=== PATIENT | female | born 1985 | race Hispanic/Latino ===

== ENCOUNTER 2022-02-10 20:20 | Emergency (ER) | payer OTHER, SELFPAY ==
[2022-02-10 20:30] VITALS: BP 112/55; PULSE 77; RESP 16; TEMP 36.3; O2SAT 99
[2022-02-10 21:02] LABS: Add Manual Diff / Slide Review NO; Basophils Absolute Auto 100 /uL (0-100); Basophils Percent Auto 0.6 % (0-2); Eosinophils Absolute Auto 100 /uL (0-450); Eosinophils Percent Auto 0.6 % (2-4); Hematocrit 38.7 % (36-46); Hemoglobin 13.1 g/dL (12.0-16.0); Lymphocytes Absolute Auto 3100 /uL (1100-4500); Lymphocytes Percent Auto 27.7 % (25-40); Mean Corpuscular HGB Conc 33.9 % (30-36); Mean Corpuscular Hemoglobin 29.8 PG (26-34); Monocytes Absolute Auto 700 /uL (0-900); Monocytes Percent Auto 6.6 % (3-14); Neutrophils Absolute Auto 7200 /uL (1500-7000); Neutrophils Percent Auto 64.5 % (50-75); Platelet Count 288 X10^3/uL (150-400); White Blood Cell Count 11.1 X10^3/uL (4.5-11.0)
[2022-02-10 21:04] LABS: Alanine Aminotransferase 25 IU/L (<35); Albumin 4.5 g/dL (3.5-5.0); Albumin Globulin Ratio 1.2 (1.0-2.8); Alkaline Phosphatase 63 U/L (38-126); Aspartate Aminotransferase 45 IU/L (14-36); BUN Creatinine Ratio 20.3 (6-22); Bilirubin Total 0.4 mg/dL (0.2-1.3); Blood Urea Nitrogen 15 mg/dL (7-17); Calcium 8.5 mg/dL (8.4-10.2); Carbon Dioxide 23 mmol/L (22-32); Chloride 104 mmol/L (98-107); Estimated Glomerular Filt Rate > 60 mL/min (>60); Globulin 3.8 g/dL (1.7-4.1); Glucose 108 mg/dL (70-100); HEMOLYSIS < 15 (0-50); Lipase 141 U/L (23-300); Potassium 3.7 mmol/L (3.4-5.1); Sodium 138 mmol/L (137-145); Total Protein 8.3 g/dL (6.3-8.2)
[2022-02-10 21:07] LABS: Bacteria Urine Occasional (0-1); Mucus Urine 1+ (Negative); RBC Urine 0-1/HPF (0-5/HPF); Squamous Epithelial Cell Urine 5-10 /HPF (0-5/HPF); WBC Urine 1-5/HPF (0-5/HPF)
[2022-02-10 21:08] LABS: Culture Indicated Urine Specimen Cultured
--- NOTE | 2022-02-10 22:31 | ED.GENADULT ---
HPI - General Adult General Chief complaint: Abdominal Pain Stated complaint: Nauseated, upper ABD pain Time Seen by Provider: 02/10/22 22:31 Source: patient Mode of arrival: Ambulatory History of Present Illness HPI narrative: Otherwise healthy 36-year-old woman was out with friends this evening and had of brought worst that seemed to have not agreed with her. She developed severe upper abdominal pain that is described as crampy in radiating through to her back. She had 1 episode of emesis and the pain is essentially resolved. There were a couple of other people in their group that had similar discomfort but no reports of additional vomiting. She is not having any fevers or persistent abdominal pain. She did not have any diarrhea. No palpitations, chest pain or headaches. Related Data Allergies Allergy/AdvReac Type Severity Reaction Status Date / Time No Known Drug Allergies Allergy Verified 02/10/22 20:34 Review of Systems Review of Systems Narrative: Remainder of complete review of systems is otherwise unremarkable except for that included in the HPI. Patient History Social History Smoking Status: Never smoker Smoking Status: Never smoker Exam Initial Vital Signs Initial Vital Signs: Vital Signs Temperature 97.3 F L 02/10/22 20:30 Pulse Rate 77 02/10/22 20:30 Respiratory Rate 16 02/10/22 20:30 Blood Pressure 112/55 L 02/10/22 20:30 Pulse Oximetry 99 02/10/22 20:30 Oxygen Delivery Method 02/10/22 20:30 General: Healthy appearing, in no acute distress. Able to give a complete and coherent history. Well-nourished well-developed HEENT: Moist mucous membranes, normal sclera with reactive pupils, Respiratory: Lungs are clear to auscultation, no wheezing no rales no rhonchi. Full and symmetrical air movement Cardiac: Regular rate and rhythm no murmurs no bruits Abdomen: Soft, nontender, good bowel tones, no flank pain Skin: Warm and dry, no rashes Neurologic: Grossly neurologically intact with no obvious asymmetries or abnormalities Extremities: No trauma, well perfused Psych: Cooperative, appropriate insight and affect Course Orders Ordered: ED Orders 02/10/22 20:42 Complete Blood Count AUTO DIFF Stat Comprehensive Metabolic Panel Stat Lipase Stat 02/10/22 20:58 Urine Culture Stat Urine Microscopic Stat Vital Signs Vital signs: Vital Signs - 8 hr 02/10/22 20:30 Temperature 97.3 F L Pulse Rate 77 Respiratory Rate 16 Blood Pressure 112/55 L Pulse Oximetry 99 Oxygen Delivery Method Room Air Medical Decision Making Lab Data Result diagrams: 02/10/22 20:42 02/10/22 20:42 Labs: Lab Results 02/10/22 02/10/22 02/10/22 Range/Units 20:42 20:42 20:58 WBC 11.1 H (4.5-11.0) X10^3/uL RBC 4.40 (4.0-5.2) X10^6/uL Hgb 13.1 (12.0-16.0) g/dL Hct 38.7 (36-46) % MCV 88.0 (80-100) fL MCH 29.8 (26-34) PG MCHC 33.9 (30-36) % RDW 14.0 (11.6-14.8) % Plt Count 288 (150-400) X10^3/uL Neut % (Auto) 64.5 (50-75) % Lymph % (Auto) 27.7 (25-40) % [place] % (Auto) 6.6 (3-14) % Eos % (Auto) 0.6 L (2-4) % Baso % (Auto) 0.6 (0-2) % Neut # (Auto) 7200 H (3887-7001) /uL Lymph # (Auto) 3100 (2320-4798) /uL [place] # (Auto) 700 (0-900) /uL Eos # (Auto) 100 (0-450) /uL Baso # (Auto) 100 (0-100) /uL Sodium 138 (137-145) mmol/L Potassium 3.7 (3.4-5.1) mmol/L Chloride 104 (98-107) mmol/L Carbon Dioxide 23 (22-32) mmol/L BUN 15 (7-17) mg/dL Creatinine 0.74 (0.52-1.04) mg/dL Estimated GFR > 60 (>60) mL/min BUN/Creatinine Ratio 20.3 (6-22) Glucose 108 H (70-100) mg/dL Calcium 8.5 (8.4-10.2) mg/dL Total Bilirubin 0.4 (0.2-1.3) mg/dL AST 45 H (14-36) IU/L ALT 25 (<35) IU/L Alkaline Phosphatase 63 (38-126) U/L Total Protein 8.3 H (6.3-8.2) g/dL Albumin 4.5 (3.5-5.0) g/dL Globulin 3.8 (1.7-4.1) g/dL Albumin/Globulin Ratio 1.2 (1.0-2.8) Lipase 141 (23-300) U/L Urine RBC 0-1/hpf (0-5/HPF) Urine WBC 1-5/hpf (0-5/HPF) Ur Squamous Epith Cells 5-10 /hpf H (0-5/HPF) Urine Bacteria Occasional (0-1) (None) Urine Mucus 1+ H (Negative) Ur Culture Indicated? Specimen cultured Point of Care Testing Test Results Negative Urine Dip Bedside Urine Glucose Negative Bedside Urine Bilirubin - Negative Bedside Urine Ketone - Negative Urine Specific [place] 1.025 Bedside Urine Occult Blood + Bedside Urine pH 6.0 Bedside Urine Protein - Negative Bedside Urine Urobilinogen - Negative Bedside Urine Nitrite - Negative Bedside Urine Leukocytes + 70 Esterase Point of care testing: Point of Care Testing Test Results Negative Urine Dip Bedside Urine Glucose Negative Bedside Urine Bilirubin - Negative Bedside Urine Ketone - Negative Urine Specific [place] 1.025 Bedside Urine Occult Blood + Bedside Urine pH 6.0 Bedside Urine Protein - Negative Bedside Urine Urobilinogen - Negative Bedside Urine Nitrite - Negative Bedside Urine Leukocytes + 70 Esterase MDM Narrative Medical decision making narrative: 36-year-old woman with acute onset of upper abdominal pain and cramping after eating a brought worst.? Almost complete resolution of all symptoms after an episode of emesis with no persistent nausea, no developing diarrhea and no fevers.? At this point she is entirely back to baseline, reassurance is given and she is discharged home. Discharge Plan Departure Patient Disposition: Home Clinical Impression: Nausea & vomiting Qualifiers: Vomiting type: unspecified Qualified Code(s): R11.2 - Nausea with vomiting, unspecified Instructions: Nausea and Vomiting-Adult Activity Restrictions/Additional Instructions: Thank you for coming in this evening It does seem that this is likely food related. The intense cramping is often your stomach simply saying the food must come out. Your blood work is reassuring. You are not , there is no sign of infection, no sign of bleeding, significant dehydration, kidney function abnormalities, liver function abnormalities or electrolyte abnormalities. Your exam is reassuring today and I am not suspicious of acute gallbladder problems or pancreatitis. At this time, with the majority of your symptoms resolved, I believe it is safe you to go home. If you find that you have recurrent symptoms or new findings it would be appropriate to return to the emergency department Visit Report Forms: Patient Portal/API
== END 2022-02-10 22:35 | disposition home or self-care (01) ==
PROVIDERS: Emergency Provider Emergency Medicine
DX: R11.2 Nausea with vomiting, unspecified (principal); R10.10 Upper abdominal pain, unspecified
CPT/HCPCS: 80053; 81003; 81015; 81025; 83690; 85025; 87086; 99282; 99283

== ENCOUNTER → 2022-02-28 15:36 | Outpatient (CLI) | payer OTHER, SELFPAY ==
--- NOTE | 2022-02-28 15:39 | DI.US.S_ITS ---
PROCEDURE: US OB <= 14 WEEKS FETUS INDICATIONS: DATING AND VIABILITY TECHNIQUE: Real-time scanning was performed of the fetus and maternal pelvic organs, with image documentation. Endovaginal scanning was also performed to better visualize the fetus and maternal ovaries. COMPARISON: None. FINDINGS: Embryo: No pole identified. Intrauterine sac-like fluid collection with mean diameter of 1.6 cm corresponding to 6 weeks 3 days. No definitive yolk sac identified. Perigestational sac hematoma measuring up to 1.2 cm. Heart rate: N/a Maternal organs: 2.6 cm intramural fibroid. Ovaries within normal limits with small cyst. IMPRESSION: Possible intrauterine gestational sac with mean diameter 1.6 cm corresponding to age of 6 weeks 3 days and no definite pole or yolk sac is seen. Recommend short-term follow-up pelvic ultrasound in 11 days to assess viability. We strive to produce accurate, complete, and clear reports of imaging services. To assist us in improving patient care, this report was composed using standard report templates and voice recognition software. Therefore, it may contain abnormal punctuation, insertions and/or omissions. Occasional wrong-word or sound-alike substitutions may occur. Though we review the report and make efforts to correct it, we do recommend that the report be read carefully in proper context to recognize any text inaccuracies. Dictated by: Herminio PENA Interpreted: Judson Todd MD on 02/28/2022 at 16:54 Transcribed by: CHANTE on 02/28/2022 at 16:57 Approved by: Judson Todd M.D. on 02/28/2022 at 17:20
== END ==
PROVIDERS: Referring Provider Obstetrics & Gynecology; Visit Provider Obstetrics & Gynecology
DX: O36.80X0 Pregnancy with inconclusive fetal viability, not applicable or unspecified (principal)
CPT/HCPCS: 36415; 76801; 76817; 80055; 81003; 81015; 86787; 86803; 86850; 86900; 86901; 87086; 87389

== ENCOUNTER → 2022-02-28 15:40 | Outpatient (CLI) | payer OTHER, SELFPAY ==
[2022-02-28 16:16] LABS: Add Manual Diff / Slide Review NO; Basophils Absolute Auto 100 /uL (0-100); Basophils Percent Auto 0.9 % (0-2); Eosinophils Absolute Auto 100 /uL (0-450); Eosinophils Percent Auto 0.9 % (2-4); Hematocrit 38.4 % (36-46); Hemoglobin 13.4 g/dL (12.0-16.0); Lymphocytes Absolute Auto 1900 /uL (1100-4500); Lymphocytes Percent Auto 24.3 % (25-40); Mean Corpuscular HGB Conc 34.9 % (30-36); Mean Corpuscular Hemoglobin 30.7 PG (26-34); Mean Corpuscular Volume 87.9 fL (80-100); Monocytes Absolute Auto 800 /uL (0-900); Monocytes Percent Auto 9.7 % (3-14); Neutrophils Absolute Auto 5100 /uL (1500-7000); Neutrophils Percent Auto 64.2 % (50-75); Platelet Count 294 X10^3/uL (150-400); Red Blood Cell Count 4.36 X10^6/uL (4.0-5.2); Red Cell Distribution Width 14.3 % (11.6-14.8); White Blood Cell Count 7.9 X10^3/uL (4.5-11.0)
[2022-02-28 16:19] LABS: Appearance Urine UA CLEAR; Bilirubin Urine UA NEGATIVE (NEGATIVE); Color Urine UA YELLOW; Glucose Urine UA NEGATIVE (Negative); Ketones Urine UA NEGATIVE (NEGATIVE); Leukocyte Esterase Urine UA 1+ (NEGATIVE); Nitrite Urine UA NEGATIVE (Negative); Occult Blood Urine UA 1+ (Negative); Protein Urine UA NEGATIVE (Negative); Specific Gravity Urine UA <=1.005 (1.000-1.035); Urobilinogen Urine UA 0.2 E.U./dL (0.2)
[2022-02-28 16:24] LABS: pH Urine UA 5.5 (4.5-8.0)
[2022-02-28 17:37] LABS: Amorphous Sediment Urine 1+; Bacteria Urine Moderate (10-30); Culture Indicated Urine Specimen Cultured; RBC Urine 1-5/HPF (0-5/HPF); Squamous Epithelial Cell Urine 1-5 /HPF (0-5/HPF); WBC Urine 5-10/HPF (0-5/HPF)
[2022-02-28 17:59] LABS: Hepatitis B Surface Antigen NEGATIVE s/c (NEGATIVE); Rubella Antibody IgG 26.7 IU/mL (>15)
[2022-02-28 18:11] LABS: HIV 1 & 2 Ab/Ag 4th Gen Combo NEGATIVE (NEGATIVE); Hep C Virus Ab w/Reflex Quant NEGATIVE s/c (NEGATIVE)
[2022-03-01 05:12] LABS: RPR Screen Non Reactive (Non Reactive)
[2022-03-01 08:35] LABS: Varicella IgG Antibody 795 index (Immune >165)
== END ==
PROVIDERS: Referring Provider Obstetrics & Gynecology; Visit Provider Obstetrics & Gynecology
DX: Z34.81 Encounter for supervision of other normal pregnancy, first trimester (principal)
CPT/HCPCS: 36415; 80055; 81003; 81015; 86787; 86803; 86850; 86900; 86901; 87086; 87389

== ENCOUNTER 2022-03-15 01:47 | Emergency (ER) | payer OTHER, SELFPAY ==
[2022-03-15 01:54] VITALS: BP 134/66; PULSE 75; RESP 16; TEMP 36.4; O2SAT 99; BMI 29.2
[2022-03-15 03:01] LABS: Add Manual Diff / Slide Review NO; Basophils Absolute Auto 100 /uL (0-100); Basophils Percent Auto 0.6 % (0-2); Eosinophils Absolute Auto 100 /uL (0-450); Hematocrit 39.1 % (36-46); Hemoglobin 12.9 g/dL (12.0-16.0); Lymphocytes Absolute Auto 2900 /uL (1100-4500); Lymphocytes Percent Auto 22.7 % (25-40); Mean Corpuscular Hemoglobin 29.2 PG (26-34); Mean Corpuscular Volume 88.3 fL (80-100); Monocytes Absolute Auto 1000 /uL (0-900); Monocytes Percent Auto 7.4 % (3-14); Neutrophils Absolute Auto 8800 /uL (1500-7000); Neutrophils Percent Auto 68.3 % (50-75); Platelet Count 359 X10^3/uL (150-400); Red Blood Cell Count 4.43 X10^6/uL (4.0-5.2); White Blood Cell Count 12.8 X10^3/uL (4.5-11.0)
[2022-03-15 03:07] LABS: Alanine Aminotransferase 19 IU/L (<35); Albumin 3.9 g/dL (3.5-5.0); Albumin Globulin Ratio 1.1 (1.0-2.8); Alkaline Phosphatase 60 U/L (38-126); Aspartate Aminotransferase 22 IU/L (14-36); BUN Creatinine Ratio 17.2 (6-22); Bilirubin Total 0.3 mg/dL (0.2-1.3); Blood Urea Nitrogen 10 mg/dL (7-17); Calcium 8.8 mg/dL (8.4-10.2); Carbon Dioxide 19 mmol/L (22-32); Chloride 106 mmol/L (98-107); Estimated Glomerular Filt Rate > 60 mL/min (>60); Globulin 3.5 g/dL (1.7-4.1); Glucose 111 mg/dL (70-100); HEMOLYSIS < 15 (0-50); Lipase 150 U/L (23-300); Potassium 3.5 mmol/L (3.4-5.1); Sodium 136 mmol/L (137-145); Total Protein 7.4 g/dL (6.3-8.2)
[2022-03-15 03:27] LABS: Appearance Urine UA CLEAR; Bilirubin Urine UA NEGATIVE (NEGATIVE); Glucose Urine UA NEGATIVE (Negative); Ketones Urine UA NEGATIVE (NEGATIVE); Leukocyte Esterase Urine UA NEGATIVE (NEGATIVE); Nitrite Urine UA NEGATIVE (Negative); Occult Blood Urine UA TRACE-LYSED (Negative); Protein Urine UA NEGATIVE (Negative); Specific Gravity Urine UA <=1.005 (1.000-1.035); Urobilinogen Urine UA 0.2 E.U./dL (0.2)
[2022-03-15 03:28] LABS: Pregnancy Test Urine Positive (Negative)
[2022-03-15 03:29] LABS: Color Urine UA Straw; pH Urine UA 5.5 (4.5-8.0)
[2022-03-15 03:38] LABS: RBC Urine None Seen (0-5/HPF); Squamous Epithelial Cell Urine 1-5 /HPF (0-5/HPF); WBC Urine None Seen (0-5/HPF)
[2022-03-15 03:39] LABS: Bacteria Urine Occasional (0-1); Culture Indicated Urine Cult Not Indicated
--- NOTE | 2022-03-15 03:51 | DI.US.S_ITS ---
PROCEDURE: US OB <= 14 WEEKS FETUS INDICATIONS: abd pain, + OUTSIDE/PRIOR DATING DATA: Last menstrual period (LMP): Unknown. LMP-based estimated date of delivery (JULIANA): Not applicable. First dating scan (date and location): March 15, 2022. Estimated date of delivery (JULIANA) from first dating scan: October 23, 2022. TECHNIQUE: Real-time scanning was performed of the fetus and maternal pelvic organs, with image documentation. COMPARISON: [facility], , OB <= 14 WEEKS FETUS, 02/28/2022, 16:12. FINDINGS: Embryo: Single living intrauterine gestation identified with estimated sonographic gestational age of approximately 8 weeks and 2 days based off crown-rump length measurement of approximately 1.78 cm. Normal appearing yolk sac is visualized. Small perigestational hemorrhage noted inferior to the gestational sac measuring 0.8 x 0.4 x 1.1 cm. Heart rate: 171 Maternal organs: Ovaries demonstrate presence of a 2.2 x 2.3 x 2.5 cm left corpus luteal cyst. Midline uterine fibroid measuring 1.2 x 2.0 x 1.6 cm . IMPRESSION: Single living intrauterine gestation with estimated sonographic gestational age of approximately 8 weeks and 2 days based crown-rump length measurement. Estimated dated delivery is approximately 10/23/2022. Small perigestational hemorrhage measuring up to 1.1 cm in size visualized inferior to the gestational sac. Recommend routine second trimester anatomic screening survey. We strive to produce accurate, complete, and clear reports of imaging services. To assist us in improving patient care, this report was composed using standard report templates and voice recognition software. Therefore, it may contain abnormal punctuation, insertions and/or omissions. Occasional wrong-word or sound-alike substitutions may occur. Though we review the report and make efforts to correct it, we do recommend that the report be read carefully in proper context to recognize any text inaccuracies. Dictated by: Carmine Willis M.D. on 03/15/2022 at 9:10 Approved by: Carmine Willis M.D. on 03/15/2022 at 9:14
--- NOTE | 2022-03-15 03:53 | ED.PREGNANCY ---
HPI - General Chief complaint: Abdominal Pain Stated complaint: PAIN IN STOMACH AND BACK Time Seen by Provider: 03/15/22 03:10 Source: patient Mode of arrival: Ambulatory Limitations: no limitations History of Present Illness HPI Narrative: This is a 36-year-old female , with no known medical issues. Last menstrual period was early December. Patient states she came in this because she had pain across her upper abdomen that has resolved. No fevers or chills. She is had nausea throughout her . No vomiting. No dysuria, urgency or frequency. She would 2 episodes of loose stools this evening. She may or may not have had some spotting she is unsure. Patient states her 1st they gave her medication to keep the baby in her longer but other other pregnancies were uneventful. She denies daily medications. No known allergies. Denies surgeries. She has had ultrasound the end of January but states was inconclusive in terms of her Related Data Home Medications Medication Instructions Recorded Confirmed biotin 2,500 mcg capsule 2,500 mcg PO DAILY 02/28/22 02/28/22 prenat.vits,marisol,[id number] 1 tab PO DAILY 02/28/22 02/28/22 Allergies Allergy/AdvReac Type Severity Reaction Status Date / Time No Known Drug Allergies Allergy Verified 02/28/22 08:30 Review of Systems Review of Systems ROS Unobtainable: All systems reviewed & are unremarkable except as noted in HPI and below Exam Narrative Exam Narrative: GENERAL: Alert and oriented x three, female in mild distress HEENT: Head normocephalic, atraumatic, EOMI, pupils reactive, face symmetric, moist mucous membranes NECK: Supple, full range of motion CARDIOVASCULAR: Regular rate and rhythm without murmurs, rubs or gallops. RESPIRATORY: Breath sounds equal bilaterally, no wheezes rales or rhonchi. ABDOMEN: Soft, nontender. Normoactive bowel sounds all 4 quadrants. No guarding or rebound, rigidity, no mass : No CVA tenderness EXTREMITIES: Normal range of motion, no clubbing or edema. Neurovascularly intact NEUROLOGICAL: Cranial nerves II through XII grossly intact. Moving all extremities SKIN: Warm, dry, no petechiae, no rashes or lesions. Initial Vital Signs Initial Vital Signs: Vital Signs Temperature 97.6 F 03/15/22 01:54 Pulse Rate 75 03/15/22 01:54 Respiratory Rate 16 07/15/22 01:54 Blood Pressure 134/66 03/15/22 01:54 Pulse Oximetry 99 03/15/22 01:54 Oxygen Delivery Method 03/15/22 01:54 Course Orders Ordered: ED Orders 03/15/22 02:45 Beta HCG, Quant [HCG Quantitative /Beta subunit] Stat Complete Blood Count AUTO DIFF Stat Comprehensive Metabolic Panel Stat Lipase Stat 03/15/22 03:15 Test Urine Stat Urinalysis and Microscopic Stat 03/15/22 03:51 US OB <= 14 weeks fetus Stat Vital Signs Vital signs: Vital Signs - 8 hr 03/15/22 01:54 03/15/22 05:42 Temperature 97.6 F Pulse Rate 75 70 Respiratory Rate 16 16 Blood Pressure 134/66 100/49 L Pulse Oximetry 99 99 Oxygen Delivery Method Room Air Room Air MDM - OB/Uterine Contractions Lab Data Result diagrams: 03/15/22 02:45 03/15/22 02:45 Labs: Lab Results 03/15/22 03/15/22 03/15/22 Range/Units 02:45 02:45 02:45 WBC 12.8 H (4.5-11.0) X10^3/uL RBC 4.43 (4.0-5.2) X10^6/uL Hgb 12.9 (12.0-16.0) g/dL Hct 39.1 (36-46) % MCV 88.3 (80-100) fL MCH 29.2 (26-34) PG MCHC 33.0 (30-36) % RDW 14.0 (11.6-14.8) % Plt Count 359 (150-400) X10^3/uL Neut % (Auto) 68.3 (50-75) % Lymph % (Auto) 22.7 L (25-40) % [place] % (Auto) 7.4 (3-14) % Eos % (Auto) 1.0 L (2-4) % Baso % (Auto) 0.6 (0-2) % Neut # (Auto) 8800 H (7138-3969) /uL Lymph # (Auto) 2900 (7610-9680) /uL [place] # (Auto) 1000 H (0-900) /uL Eos # (Auto) 100 (0-450) /uL Baso # (Auto) 100 (0-100) /uL Sodium 136 L (137-145) mmol/L Potassium 3.5 (3.4-5.1) mmol/L Chloride 106 (98-107) mmol/L Carbon Dioxide 19 L (22-32) mmol/L BUN 10 (7-17) mg/dL Creatinine 0.58 (0.52-1.04) mg/dL Estimated GFR > 60 (>60) mL/min BUN/Creatinine Ratio 17.2 (6-22) Glucose 111 H (70-100) mg/dL Calcium 8.8 (8.4-10.2) mg/dL Total Bilirubin 0.3 (0.2-1.3) mg/dL AST 22 (14-36) IU/L ALT 19 (<35) IU/L Alkaline Phosphatase 60 (38-126) U/L Total Protein 7.4 (6.3-8.2) g/dL Albumin 3.9 (3.5-5.0) g/dL Globulin 3.5 (1.7-4.1) g/dL Albumin/Globulin Ratio 1.1 (1.0-2.8) Lipase 150 (23-300) U/L HCG, Quant 939102 mIU/mL Urine Color Urine Appearance Urine pH (4.5-8.0) Ur Specific [place] (1.000-1.035) Urine Protein (Negative) Urine Glucose (UA) (Negative) g/dL Urine Ketones (NEGATIVE) Urine Occult Blood (Negative) Urine Nitrate (Negative) Urine Bilirubin (NEGATIVE) Urine Urobilinogen (0.2) E.U./dL Ur Leukocyte Esterase (NEGATIVE) Urine RBC (0-5/HPF) Urine WBC (0-5/HPF) Ur Squamous Epith Cells (0-5/HPF) Urine Bacteria (None) Ur Culture Indicated? Urine Test (Negative) 03/15/22 03/15/22 Range/Units 03:15 03:15 WBC (4.5-11.0) X10^3/uL RBC (4.0-5.2) X10^6/uL Hgb (12.0-16.0) g/dL Hct (36-46) % MCV (80-100) fL MCH (26-34) PG MCHC (30-36) % RDW (11.6-14.8) % Plt Count (150-400) X10^3/uL Neut % (Auto) (50-75) % Lymph % (Auto) (25-40) % [place] % (Auto) (3-14) % Eos % (Auto) (2-4) % Baso % (Auto) (0-2) % Neut # (Auto) (7665-2814) /uL Lymph # (Auto) (4395-9335) /uL [place] # (Auto) (0-900) /uL Eos # (Auto) (0-450) /uL Baso # (Auto) (0-100) /uL Sodium (137-145) mmol/L Potassium (3.4-5.1) mmol/L Chloride (98-107) mmol/L Carbon Dioxide (22-32) mmol/L BUN (7-17) mg/dL Creatinine (0.52-1.04) mg/dL Estimated GFR (>60) mL/min BUN/Creatinine Ratio (6-22) Glucose (70-100) mg/dL Calcium (8.4-10.2) mg/dL Total Bilirubin (0.2-1.3) mg/dL AST (14-36) IU/L ALT (<35) IU/L Alkaline Phosphatase (38-126) U/L Total Protein (6.3-8.2) g/dL Albumin (3.5-5.0) g/dL Globulin (1.7-4.1) g/dL Albumin/Globulin Ratio (1.0-2.8) Lipase (23-300) U/L HCG, Quant mIU/mL Urine Color Straw Urine Appearance Clear Urine pH 5.5 (4.5-8.0) Ur Specific [place] <=1.005 (1.000-1.035) Urine Protein Negative (Negative) Urine Glucose (UA) Negative (Negative) g/dL Urine Ketones Negative (NEGATIVE) Urine Occult Blood Trace-lysed (Negative) Urine Nitrate Negative (Negative) Urine Bilirubin Negative (NEGATIVE) Urine Urobilinogen 0.2 (0.2) E.U./dL Ur Leukocyte Esterase Negative (NEGATIVE) Urine RBC None seen (0-5/HPF) Urine WBC None seen (0-5/HPF) Ur Squamous Epith Cells 1-5 /hpf (0-5/HPF) Urine Bacteria Occasional (0-1) D (None) Ur Culture Indicated? Cult not indicated Urine Test Positive H (Negative) Imaging Data US - OB: Radiologist's Impression: Single live intrauterine estimated 8 weeks, 4 days gestational age by today's ultrasound criteria. Subchorionic hemorrhage recommend ultrasound in 2-3 weeks to document stability/resolution, structure is measured 8 x 4 x 11 mm. Left corpus intramural fibroid measuring 1.2 x 2 x 1.6 cm ovaries have a normal sonographic appearance with corpus luteum cyst on the left. MDM Narrative Medical decision making narrative: This is a who is approximately 8 weeks based on last ultrasound patient was unsure of her dates plan thought early December was her last menses. Patient had upper abdominal discomfort. She may or may not have had some spotting. Patient's labs are reassuring, her HCG is trending upwards. Patient is O positive, recess negative on check in January. No active bleeding that she appreciates. Patient ultrasound findings were reviewed with her. 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 Discharge Plan Departure Patient Disposition: Home Clinical Impression: Abdominal pain affecting Activity Restrictions/Additional Instructions: Please follow-up with your provider. Call to set up an appointment for recheck repeat ultrasound in the next several weeks if you do not have one established. Your imaging does show a subchorionic hemorrhage. Continue with pelvic rest. Please return for new or worsening abdominal pain, passing out, persistent vomiting, new vaginal bleeding, passing large clots or other new or concerning symptoms. Prescriptions: No Action prenat.vits,marisol,[id number] Tablet 1 tab PO DAILY biotin 2,500 mcg capsule 2,500 mcg PO DAILY Referrals: Miscellaneous,DoctorMD [Primary Care Provider] - Jay Bradford MD [Physician] - Stand Alone Forms: Work Release Note Visit Report Forms: Patient Portal/API
[2022-03-15 04:47] LABS: HCG Quantitative /Beta subunit 126580 mIU/mL
[2022-03-15 05:42] VITALS: BP 100/49; PULSE 70; RESP 16; O2SAT 99
== END 2022-03-15 06:00 | disposition home or self-care (01) ==
PROVIDERS: Emergency Provider Emergency Medicine
DX: O26.91 Pregnancy related conditions, unspecified, first trimester (principal); R10.9 Unspecified abdominal pain; Z3A.08 8 weeks gestation of pregnancy
CPT/HCPCS: 36415; 76801; 76817; 80053; 81001; 81025; 83690; 84702; 85025; 99284

== ENCOUNTER → 2022-03-19 10:03 | Outpatient (CLI) | payer OTHER, SELFPAY ==
[2022-03-19 10:29] LABS: Specimen Label KIT TEST
== END ==
PROVIDERS: Referring Provider Obstetrics & Gynecology; Visit Provider Obstetrics & Gynecology
DX: O09.521 Supervision of elderly multigravida, first trimester (principal); Z3A.08 8 weeks gestation of pregnancy
CPT/HCPCS: 36415

== ENCOUNTER 2022-10-22 20:32 | Emergency (ER) | payer OTHER, SELFPAY ==
[2022-10-22 20:42] VITALS: BP 129/68; PULSE 66; RESP 18; TEMP 36.4; O2SAT 100; BMI 26.4
[2022-10-22 21:36] LABS: Add Manual Diff / Slide Review NO; Basophils Absolute Auto 100 /uL (0-100); Basophils Percent Auto 1.1 % (0-2); Eosinophils Absolute Auto 200 /uL (0-450); Eosinophils Percent Auto 1.7 % (2-4); Hematocrit 38.4 % (36-46); Hemoglobin 12.7 g/dL (12.0-16.0); Lymphocytes Absolute Auto 2400 /uL (1100-4500); Lymphocytes Percent Auto 22.9 % (25-40); Mean Corpuscular HGB Conc 33.1 % (30-36); Mean Corpuscular Hemoglobin 29.9 PG (26-34); Mean Corpuscular Volume 90.3 fL (80-100); Monocytes Absolute Auto 800 /uL (0-900); Neutrophils Absolute Auto 6900 /uL (1500-7000); Neutrophils Percent Auto 66.3 % (50-75); Platelet Count 353 X10^3/uL (150-400); Red Blood Cell Count 4.25 X10^6/uL (4.0-5.2); Red Cell Distribution Width 13.6 % (11.6-14.8); White Blood Cell Count 10.4 X10^3/uL (4.5-11.0)
[2022-10-22 21:52] LABS: Alanine Aminotransferase 16 IU/L (<35); Albumin 4.1 g/dL (3.5-5.0); Albumin Globulin Ratio 1.2 (1.0-2.8); Alkaline Phosphatase 58 U/L (38-126); Aspartate Aminotransferase 21 IU/L (14-36); BUN Creatinine Ratio 11.6 (6-22); Bilirubin Total 0.2 mg/dL (0.2-1.3); Blood Urea Nitrogen 10 mg/dL (7-17); Calcium 8.5 mg/dL (8.4-10.2); Carbon Dioxide 26 mmol/L (22-32); Chloride 103 mmol/L (98-107); Estimated Glomerular Filt Rate > 60 mL/min (>60); Globulin 3.4 g/dL (1.7-4.1); Glucose 98 mg/dL (70-100); HEMOLYSIS < 15 (0-50); Lipase 140 U/L (23-300); Potassium 3.9 mmol/L (3.4-5.1); Sodium 137 mmol/L (137-145); Total Protein 7.5 g/dL (6.3-8.2)
--- NOTE | 2022-10-22 22:39 | ED_ITS ---
HPI - General Adult General Chief complaint: Abdominal Pain Stated complaint: stomach pains Time Seen by Provider: 10/22/22 21:17 Source: patient Mode of arrival: Ambulatory Limitations: no limitations History of Present Illness HPI narrative: Patient is a 37-year-old female who is here for evaluation of approximately 1 week of occasional upper abdominal pain that has been radiating around to her back. She currently is asymptomatic. She recently was treated with Bactrim for UTI. She also can not remember the last time she is had a bowel movement. She denies any urinary symptoms. Some nausea but no vomiting. No fevers. No skin changes. No prior abdominal surgeries. Related Data Home Medications Medication Instructions Recorded Confirmed biotin 2,500 mcg capsule 2,500 mcg PO DAILY 02/28/22 02/28/22 prenat.vits,marisol,rdi-[id number]-nulbf 1 tab PO DAILY 02/28/22 02/28/22 Allergies Allergy/AdvReac Type Severity Reaction Status Date / Time No Known Drug Allergies Allergy Verified 03/19/22 09:21 Review of Systems Constitutional Constitutional: Reports system reviewed and no additional complaints, except as documented Cardiovascular Cardiovascular: Reports system reviewed and no additional complaints, except as documented Respiratory Respiratory: Reports system reviewed and no additional complaints, except as documented Gastrointestinal Gastrointestinal: Reports system reviewed and no additional complaints, except as documented Integumentary/Breasts Skin/Breast: Reports system reviewed and no additional complaints, except as documented Neurologic Neurologic: Reports system reviewed and no additional complaints, except as documented Patient History Surgical History (Updated 02/28/22 @ 08:37 by Desiree Persaud RN) [place] teeth extracted Family History (Updated 03/18/22 @ 21:01 by Renee Castaneda) Sister Breast cancer Stomach cancer Diabetes mellitus Brother Hyperlipidemia Diabetes mellitus Father Diabetes mellitus History of heart disease Hyperlipidemia Hypertension Stroke Mother Anxiety Social History marital status: (planning divorce in the near future, currently involved w/ another partner) number of children: 3 household members: spouse and children lives independently: Yes housing: house (base housing) pets and animals: Yes education level: middle school 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) current occupational exposures/hazards: No special shannon needs: No seatbelt use: always water heater temp set < 120 deg: Yes working smoke detector in home: Yes carbon monox detector in home: Yes firearms in home: Yes firearms unloaded and locked: Yes do you feel safe at home: Yes Smoking Status: Never smoker second hand exposure: No (has a client who smokes, but leaves the house to do so) alcohol intake: former (occasionally not when ) substance use type: does not use during the past year weight has: remained stable well-balanced diet: about half the time daily servings fruits/ve-1 caffeine: Yes (Aware of 200mg limit) Type(s) of exercise: walking Smoking Status: Never smoker alcohol intake frequency: holidays/special occasions only Substance Use Type: does not use Exam Initial Vital Signs Initial Vital Signs: Vital Signs Temperature 97.6 F 10/22/22 20:42 Pulse Rate 66 10/22/22 20:42 Respiratory Rate 18 10/22/22 20:42 Blood Pressure 129/68 10/22/22 20:42 Pulse Oximetry 100 10/22/22 20:42 Oxygen Delivery Method 10/22/22 20:42 HENAL Head: normal to inspection and normocephalic Resp Effort & Inspection: normal respiratory effort Auscultation: clear to auscultation bilaterally Cardio Rate: regular rate Rhythm: regular rhythm GI Inspection: normal to inspection Palpation: soft, No firm and No tender Back/Spine/Pelvis Back: No CVA tenderness Skin General: no rashes or lesions noted Neuro General: patient alert, patient awake, patient oriented x3 and moves all extrem ities Extrem General: capillary refill normal Course Orders Ordered: ED Orders 10/22/22 21:25 Complete Blood Count AUTO DIFF Stat Comprehensive Metabolic Panel Stat Lipase Stat Discontinued Medications Ondansetron HCl (Ondansetron 4 Mg/2 Ml Inj) 4 mg IV NOW PRN PRN Reason: Nausea And Vomiting Vital Signs Vital signs: Vital Signs - 8 hr 10/22/22 22:50 Temperature 97.9 F Pulse Rate 63 Respiratory Rate 16 Blood Pressure 118/70 Pulse Oximetry 98 Oxygen Delivery Method Room Air Medical Decision Making Lab Data Lab results reviewed: Yes I reviewed the patient's lab results. 10/22/22 21:25 10/22/22 21:25 Labs: Lab Results 10/22/22 10/22/22 Range/Units 21:25 21:25 WBC 10.4 (4.5-11.0) X10^3/uL RBC 4.25 (4.0-5.2) X10^6/uL Hgb 12.7 (12.0-16.0) g/dL Hct 38.4 (36-46) % MCV 90.3 (80-100) fL MCH 29.9 (26-34) PG MCHC 33.1 (30-36) % RDW 13.6 (11.6-14.8) % Plt Count 353 (150-400) X10^3/uL Neut % (Auto) 66.3 (50-75) % Lymph % (Auto) 22.9 L (25-40) % [place] % (Auto) 8.0 (3-14) % Eos % (Auto) 1.7 L (2-4) % Baso % (Auto) 1.1 (0-2) % Neut # (Auto) 6900 (6206-5581) /uL Lymph # (Auto) 2400 (1693-9816) /uL Loving # (Auto) 800 (0-900) /uL Eos # (Auto) 200 (0-450) /uL Baso # (Auto) 100 (0-100) /uL Sodium 137 (137-145) mmol/L Potassium 3.9 (3.4-5.1) mmol/L Chloride 103 (98-107) mmol/L Carbon Dioxide 26 (22-32) mmol/L BUN 10 (7-17) mg/dL Creatinine 0.86 (0.52-1.04) mg/dL Estimated GFR > 60 (>60) mL/min BUN/Creatinine Ratio 11.6 (6-22) Glucose 98 (70-100) mg/dL Calcium 8.5 (8.4-10.2) mg/dL Total Bilirubin 0.2 (0.2-1.3) mg/dL AST 21 (14-36) IU/L ALT 16 (<35) IU/L Alkaline Phosphatase 58 (38-126) U/L Total Protein 7.5 (6.3-8.2) g/dL Albumin 4.1 (3.5-5.0) g/dL Globulin 3.4 (1.7-4.1) g/dL Albumin/Globulin Ratio 1.2 (1.0-2.8) Lipase 140 (23-300) U/L Point of Care Testing Test Results Negative Urine Dip Bedside Urine Glucose Negative Bedside Urine Bilirubin - Negative Bedside Urine Ketone - Negative Urine Specific [place] 1.010 Bedside Urine Occult Blood - Negative Bedside Urine pH 6 Bedside Urine Protein - Negative Bedside Urine Urobilinogen - Negative Bedside Urine Nitrite - Negative Bedside Urine Leukocytes - Negative Esterase Point of care testing: Point of Care Testing Test Results Negative Urine Dip Bedside Urine Glucose Negative Bedside Urine Bilirubin - Negative Bedside Urine Ketone - Negative Urine Specific [place] 1.010 Bedside Urine Occult Blood - Negative Bedside Urine pH 6 Bedside Urine Protein - Negative Bedside Urine Urobilinogen - Negative Bedside Urine Nitrite - Negative Bedside Urine Leukocytes - Negative Esterase MDM Narrative Medical decision making narrative: Patient does have a benign exam. Her labs are unremarkable. Urinalysis shows no signs of infection. I have low suspicion for pyelo. She currently is asymptomatic. Lipase is negative. LFTs negative. No skin changes. We did discuss the possibility that this is a stomach ulcer. Discussed medications that she can try for this. We also discussed the possibility that this is constipation given the fact that it is coming and going and she has not had a bowel movement the past couple days. Discussed the use of laxatives. I do feel given her presentation today and her labs and her lack of symptoms that we should hold on any radiologic studies for now. She was informed that if her symptoms worsen or change or localized that she needs to return to the emergency department for further evaluation. Discharge Plan Departure Patient Disposition: Home Clinical Impression: Abdominal pain Instructions: DI for Abdominal Pain-Adult Activity Restrictions/Additional Instructions: I do recommend that you consider starting on a bowel regiment to include either stool softeners or laxatives. This may help your abdominal pain. Had also recommend a anti reflux medicine such as famotidine/Pepcid. You can purchase this [id number]. It is a 1 time a day medication. If your symptoms worsen or you develop any new symptoms please return to the emergency department for further evaluation. Prescriptions: No Action prenat.vits,marisol,vkf-rltr-orpri Tablet 1 tab PO DAILY biotin 2,500 mcg capsule 2,500 mcg PO DAILY Referrals: ProviderHyacinth [Primary Care Provider] - Stand Alone Forms: Patient Portal/API
[2022-10-22 22:50] VITALS: BP 118/70; PULSE 63; RESP 16; TEMP 36.6; O2SAT 98
== END 2022-10-22 22:51 | disposition home or self-care (01) ==
PROVIDERS: Emergency Provider Emergency Medicine
DX: R10.10 Upper abdominal pain, unspecified (principal); R11.0 Nausea
CPT/HCPCS: 36415; 80053; 81003; 81025; 83690; 85025; 99283